=== PATIENT | female | born 1940 | race Caucasian/White ===

== ENCOUNTER 2022-10-09 11:12 | Day surgery (SDC) | payer MEDICARE ==
[2022-10-09] MEDS ORDERED: BUPIVACAINE 0.5% VIAL IJ ONE (11:13)
[2022-10-09] MEDS ORDERED: Depo-Medrol 40 MG/ML IM ONE (11:13)
[2022-10-09] MEDS ORDERED: DIPRIVAN 200 MG/20 ML IV ONE (13:07)
[2022-10-09] MEDS ORDERED: Lactated Ringers 1,000 ML IV ONE (14:21)
--- NOTE | 2022-10-09 14:29 | XRAY ---
Indication: Right hip injection Intraoperative fluoroscopy provider 33 seconds. Single digital spot image submitted for interpretation demonstrates needle tip projecting lateral to the right femur neck. Small amount of contrast injected for needle tip placement. Correlate with intraoperative findings/report.
--- NOTE | 2022-10-09 15:12 | XRAY ---
33 seconds of fluoroscopy was used in surgery for a right intra-articular hip injection.
== END 2022-10-09 13:37 | disposition home or self-care (01) ==
LOC: SDC-PAIN 11:12
PROVIDERS: ATTEND Psychiatry & Neurology Pain Medicine
DX: M16.11 Unilateral primary osteoarthritis, right hip (principal); Z79.899 Other long term (current) drug therapy
CPT/HCPCS: 20610; 73501; 77002; J1030; J2704; Q9966

== ENCOUNTER 2022-11-06 12:49 | Day surgery (SDC) | payer MEDICARE ==
[2022-11-06] MEDS ORDERED: BUPIVACAINE 0.5% VIAL IJ ONE (12:50)
[2022-11-06] MEDS ORDERED: Depo-Medrol 40 MG/ML IM ONE (12:50)
[2022-11-06] MEDS ORDERED: DIPRIVAN 200 MG/20 ML IV ONE (14:13)
[2022-11-06] MEDS ORDERED: Lactated Ringers 1,000 ML IV ONE (14:19)
--- NOTE | 2022-11-06 23:30 | XRAY ---
Indication: Bilateral SI joint injection. Intraoperative fluoroscopy provided for 21 seconds. 5 digital spot image submitted for interpretation demonstrates posterior needle tip projecting over the left and right SI joints. Correlate with intraoperative findings/report.
--- NOTE | 2022-11-07 07:16 | XRAY ---
21 seconds of fluoroscopy was used in surgery for a bilateral sacroiliac joint injection.
== END 2022-11-06 14:45 | disposition home or self-care (01) ==
LOC: SDC-PAIN 12:49
PROVIDERS: ATTEND Psychiatry & Neurology Pain Medicine
DX: M46.1 Sacroiliitis, not elsewhere classified (principal); Z79.899 Other long term (current) drug therapy
CPT/HCPCS: 27096; 72202; 77002; G0260; 99100; J1030; J2704